=== PATIENT | female | born 1985 | race African-American/Black ===

== ENCOUNTER 2018-07-28 20:36 | Observation (INO) ==
[2018-07-28 22:22] LABS: Basophils % 0.2 % (0.0-0.8); Eosinophils # 0.1 10*3/uL (0.0-0.87); Eosinophils % 0.7 % (0.00-10.9); Hematocrit 38.1 VOL% (35.7-47.0); Hemoglobin 11.2 GM/DL (12.0-16.0); Immature Granulocytes % 0.4 %; Immature Granulocytes Absolute 0.04 #; Lymphocytes # 1.5 10*3/uL (1.4-4.0); Lymphocytes % 17.1 % (21.3-54.2); Mean Corpuscular HGB Conc 29.4 GM/DL (32-36); Mean Corpuscular Volume 80.9 FL (87-102); Mean Platelet Volume 12.2 FL (9.6-12.0); Monocytes % 9.8 % (1.7-12.7); Neutrophils % 71.8 % (38.7-73.9); Platelet Count 270 T/CUMM (130-400); Red Blood Count 4.71 MC/CUMM (3.8-5.5); Red Cell Distribution Width 14.9 % (9.3-17.3)
[2018-07-28 22:23] LABS: Apearance,Urine Slightly Hazy (Clear); Bilirubin,Urine Negative (Negative); Blood, Urine Negative (Negative); Calcium Oxalate Crystals,Urine Few /HPF (Few); Glucose,Urine (UA) Negative (Negative); Ketones,Urine 5 mg/dL (Negative); Mucus,Urine Few /LPF (Occasional); Nitrite,Urine Negative (Negative); Protein,Urine Negative; RBC,Urine 2 /HPF (0-4); Squamous Epithelial Cell,Urine Occasional /HPF (0-10); Urine Color Yellow (Yellow); Urine Specific Gravity 1.035 (1.001-1.035); WBC,Urine 3 /HPF (0-6)
[2018-07-29 02:22] LABS: Albumin 3.5 G/DL (3.4-5.0); Bilirubin,Total 0.5 MG/DL (0.2-1.0); Osmolality,Calculated 277.4 MOS/KG (273-304); Total Protein 7.7 G/DL (6.4-8.3)
[2018-07-29] MEDS ORDERED: HYDROmorphone 2 MG/1 ML VIAL IV STA (04:01)
[2018-07-29] MEDS ORDERED: ONDANSETRON 4 MG/2 ML VIAL IV STA (04:04)
[2018-07-29] MEDS ORDERED: ONDANSETRON 4 MG/2 ML VIAL ONE (04:05)
[2018-07-29] MEDS ORDERED: HYDROmorphone 2 MG/1 ML VIAL ONE (04:06)
[2018-07-29] MEDS ORDERED: metroNIDAZOLE INJ 500 MG in PREMIX 1 EACH IV STA (04:16)
[2018-07-29] MEDS ORDERED: CIPROFLOXACIN INJ 400 MG in PREMIX 1 EACH IV STA (04:16)
[2018-07-29] MEDS ORDERED: HYDROmorphone 2 MG/1 ML VIAL IV PRN (05:07)
[2018-07-29] MEDS ORDERED: PROMETHAZINE 25 MG/1 ML VIAL IM PRN (05:07)
[2018-07-29] MEDS ORDERED: ONDANSETRON 4 MG/2 ML VIAL IV PRN (05:07)
[2018-07-29] MEDS: SODIUM CHLORIDE 0.9% 1,000 ML IV SCH ×3 (06:26→21:29)
[2018-07-29] MEDS: PANTOPRAZOLE 40 MG VIAL IV SCH ×2 (08:47→20:47)
[2018-07-29] MEDS: CIPROFLOXACIN INJ 400 MG in PREMIX 1 EACH IV SCH ×2 (08:47→20:44)
[2018-07-29] MEDS: ACETAMINOPHEN 325 MG TABLET PO PRN ×2 (08:51→15:40)
[2018-07-29] MEDS: metroNIDAZOLE INJ 500 MG in PREMIX 1 EACH IV SCH (15:40)
[2018-07-30] MEDS: SODIUM CHLORIDE 0.9% 1,000 ML IV SCH ×2 (02:23→11:40)
[2018-07-30] MEDS: ACETAMINOPHEN 325 MG TABLET PO PRN ×2 (02:23→09:29)
[2018-07-30] MEDS: metroNIDAZOLE INJ 500 MG in PREMIX 1 EACH IV SCH (02:24)
[2018-07-30] MEDS: PANTOPRAZOLE 40 MG VIAL IV SCH (09:24)
[2018-07-30] MEDS: CIPROFLOXACIN INJ 400 MG in PREMIX 1 EACH IV SCH (09:24)
[2018-07-30 11:56] VITALS: BP 119/76
== END 2018-07-30 12:58 | disposition home or self-care (01) ==
LOC: N.ED 20:36 → N.EDINP 20:36 → N.2E 07-29 05:43
PROVIDERS: ADMIT Hospitalist; ATTEND Hospitalist